=== PATIENT | male | born 1965 | race Caucasian/White ===

== ENCOUNTER → 2016-10-09 | Outpatient (CLI) | payer MEDICARE ==
[2016-10-09 19:14] LABS: Basophils # (A) 0.1 k/uL (0-0.2); Basophils % (A) 1 %; CH 30.7; CHCM 33.9; Eosinophils # (A) 0.3 k/uL (0-0.7); Eosinophils % (A) 4 %; HDW 2.42; HGB 15.1 gm/dL (13.0-17.5); Luc # (Auto) 0.23; Luc % (Auto) 3; Lymphocytes # (A) 1.7 k/uL (1.0-4.8); Lymphocytes % (A) 22 %; MCH 30.6 pg (25.0-35.0); MCHC 33.7 g/dL (31.0-37.0); MCV 90.8 fL (80.0-100.0); Mean Platelet Volume 9.9; Monocytes # (A) 0.5 k/uL (0-1.0); Monocytes % (A) 7 %; Neutrophils % (A) 64 %; RBC 4.95 m/uL (4.30-5.90); RDW 13.3 % (11.5-15.5); WBC 7.8 k/uL (3.8-10.6); WBC (Perox) 7.55
[2016-10-09 19:23] LABS: ALT 29 U/L (21-72); AST 24 U/L (17-59); Alkaline Phosphatase 81 U/L (38-126); Anion Gap 11 mmol/L; Blood Urea Nitrogen 11 mg/dL (9-20); Calcium 9.1 mg/dL (8.4-10.2); Carbon Dioxide 27 mmol/L (22-30); Chloride 103 mmol/L (98-107); Cholesterol 202 mg/dL (<200); Glucose 123 mg/dL (74-99); HDL Cholesterol 38 mg/dL (40-60); Non-African American GFR(MDRD) >60 (>60 ml/min/1.73 sqM); Potassium 3.8 mmol/L (3.5-5.1); Sodium 141 mmol/L (137-145); Total Bilirubin 0.8 mg/dL (0.2-1.3); Total Protein 8.2 g/dL (6.3-8.2); Triglycerides 149 mg/dL (<150)
== END ==
LOC: MMGSC 10:21
PROVIDERS: ATTEND Family Medicine
DX: Z00.00 Encounter for general adult medical examination without abnormal findings (principal); Z12.5 Encounter for screening for malignant neoplasm of prostate
CPT/HCPCS: 84439; 80061; 80053; 84443; 85025; 36415; G0103; 99203

== ENCOUNTER → 2016-10-15 | Outpatient (CLI) | payer MEDICARE | LOC: MMGSC 10:45 | PROVIDERS: ATTEND Family Medicine | DX: R73.01 Impaired fasting glucose (principal) | CPT/HCPCS: 36415; 83036 ==

== ENCOUNTER → 2018-01-06 | Outpatient (CLI) | payer MEDICARE, OTHER | END | disposition home or self-care (01) | LOC: LABPAT 10:11 | PROVIDERS: ATTEND Surgery Plastic and Reconstructive Surgery | DX: Z01.810 Encounter for preprocedural cardiovascular examination (principal) | CPT/HCPCS: 93005 ==

== ENCOUNTER → 2018-01-16 | Outpatient (CLI) | payer MEDICARE, OTHER | END | disposition home or self-care (01) | LOC: LABWHC1 14:00 | PROVIDERS: ATTEND Anesthesiology | DX: K43.6 Other and unspecified ventral hernia with obstruction, without gangrene (principal) | CPT/HCPCS: 86850; 86900; 86901 ==

== ENCOUNTER 2018-01-23 06:44 | Day surgery (SDC) | payer MEDICARE, OTHER ==
[2018-01-16 09:44] VITALS: BMI 28.6
--- NOTE | 2018-01-23 06:22 | P.GSHP ---
History of Present Illness H&P Date: 01/23/18 CHIEF COMPLAINT: Ventral hernia HISTORY OF PRESENT ILLNESS: The patient is a 52-year-old male who presents with a history of swelling and pain along the abdomen from a hernia. Now he presents for surgical intervention. PAST MEDICAL HISTORY: Please see list. PAST SURGICAL HISTORY: Please see list. MEDICATIONS: Please see list. ALLERGIES: Please see list. SOCIAL HISTORY: No illicit drug use FAMILY HISTORY: No reports of Crohn disease or ulcerative colitis. REVIEW OF ORGAN SYSTEMS: CONSTITUTIONAL: No reports of fevers or chills. No reports of weight loss despite prior attempts. GI: Denies any blood in stools or constipation. PHYSICAL EXAM: VITAL SIGNS: Stable GENERAL: Well-developed pleasant in no acute distress. HEENT: No scleral icterus. Extraocular movements grossly intact. Moist buccal mucosa. NECK: Supple without lymphadenopathy. CHEST: Unlabored respirations. Equal bilateral excursions. CARDIOVASCULAR: Regular rate and rhythm. Distal 2+ pulses. ABDOMEN: Soft, nondistended. Palpable defect of the abdomen. No peritoneal signs. MUSCULOSKELETAL: No clubbing, cyanosis, or edema. ASSESSMENT: 1. Ventral hernia PLAN: 1. Recommend proceeding with a robotic ventral hernia repair with mesh. 2. Benefits and risks of surgical intervention was discussed including possibility of open technique. 3. DVT prophylaxis. 4. Antibiotic prophylaxis. Past Medical History Additional Past Medical History / Comment(s): VENTRAL HERNIA History of Any Multi-Drug Resistant Organisms: None Reported Past Surgical History: Hernia Repair Additional Past Surgical History / Comment(s): HERNIA SX CHILD Past Anesthesia/Blood Transfusion Reactions: No Reported Reaction Smoking Status: Never smoker - Past Family History Mother Family Medical History: No Reported History Medications and Allergies Home Medications Medication Instructions Recorded Confirmed Type Ibuprofen [Motrin] 600 mg PO Q8HR PRN 01/16/18 01/16/18 History Allergies Allergy/AdvReac Type Severity Reaction Status Date / Time Penicillins Allergy Unknown Verified 01/16/18 09:39 Childhood
[~2018-01-23 06:44] MED LIST: DEXAMETHASONE SOD PHOSPHATE 10 MG/ML 1 ML VIAL IV ONE; HEPARIN SODIUM,PORCINE 5,000 UNIT/ML 1 ML VIAL SQ ONE; MIDAZOLAM 2 MG/2 ML VIAL IV PRN; ONDANSETRON 4 MG/2 ML VIAL IVP ONE; SCOPOLAMINE 1.5MG/72HR PATCH TRANSDERM ONE; ceFAZolin IN SWFI 2 GM/20 ML SYRINGE IVP ONE; fentaNYL (PF) 50 MCG/ML 2 ML AMP IV PRN
[2018-01-23] MEDS ORDERED: LIDOCAINE 1% 20 ML VIAL (10MG/ML) FOR IV START INTRADERMA ONE (07:20)
[2018-01-23] MEDS ORDERED: LACTATED RINGERS 1,000 ML IV ONE ×2 (07:25→10:03)
[2018-01-23] MEDS ORDERED: NEOSTIGMINE 1 MG/ML 10 ML VIAL ONE (09:02)
[2018-01-23] MEDS ORDERED: GLYCOPYRROLATE 0.2 MG/ML 2 ML VIAL ONE (09:02)
[2018-01-23] MEDS ORDERED: PROPOFOL 10 MG/ML 20 ML VIAL IV ONE (09:02)
[2018-01-23] MEDS ORDERED: SUCCINYLCHOLINE CHLORIDE 100 MG/5 ML SYR IV ONE (09:02)
[2018-01-23] MEDS ORDERED: MIDAZOLAM 2 MG/2 ML VIAL ONE (09:02)
[2018-01-23] MEDS ORDERED: ROCURONIUM BROMIDE 10 MG/ML 10 ML VIAL IV ONE (09:02)
[2018-01-23] MEDS ORDERED: fentaNYL (PF) 50 MCG/ML 2 ML AMP ONE (09:02)
[2018-01-23] MEDS ORDERED: LIDOCAINE 1% INJ 10MG/ML (20 ML MDV) ONE (09:02)
[2018-01-23] MEDS ORDERED: BUPIVACAIN-EPI 0.5%-1:200,000 30 ML VIAL SQ ONE (09:21)
--- NOTE | 2018-01-23 10:11 | P.PCN ---
Date of Procedure: 01/23/18 Description of Procedure: SURGEON: TOMMY HAYNES MD PREOPERATIVE DIAGNOSES: 1. Initial umbilical hernia POSTOPERATIVE DIAGNOSES: 1. Initial umbilical incarcerated, 2 cm OPERATION: 1. Robotic-assisted da Viky Xi laparoscopic repair of initial incarcerated ventral hernia 2 cm without mesh ANESTHESIA: General with local ESTIMATED BLOOD LOSS: 5 mL. SPECIMENS: None. COMPLICATIONS: None. INDICATIONS: The patient is a 52-year-old male who presents with initial umbilical hernia. Surgical intervention with laparoscopic versus robotic and open techniques were reviewed. Possibility of mesh placement was described. Benefits and risks were thoroughly described. Informed consent was obtained. DESCRIPTION OF PROCEDURE: The patient was brought into the operating room and laid in supine position. After general induction, the abdomen had been prepped and draped in standard sterile fashion. Ioban draping was also placed. Prior to incision, a timeout protocol was confirmed with surgical team regarding the patient's name including procedures to be performed. The robot was primed prior to the procedure. A field block using local anesthetic was placed along hernia site including the proposed port sites. Initial incision was made with an #11 blade along the left upper quadrant. A 0 degree 5 mm laparoscopic trocar entry was performed. Diagnostic laparoscopy demonstrated an incarcerated ventral hernia of the epigastrium. A 8 mm trocar was placed along the left lateral abdominal wall approximately 10 cm lateral to the lower midline. An 8 mm port was placed along the left lower quadrant under direct localization. The 5-mm port was exchanged for an 8 mm robotic port. Placements of the ports were 12 cm from the target anatomy and 8 cm apart. The [employer] robot was previously primed, prepped and draped then docked along the left side of the patient. I then sat at the robot [employer] console where working arms of the robot were scissors, needle courtesy van driver, and graspers placed by the transition assistant. Fascial defect of 2 cm was identified. Attention was brought to the umbilicus where an incarcerated ventral hernia was identified also containing fat. The incarcerated contents was reduced as the peritoneal fat was cleaned from the abdominal wall. Next, hemostasis was checked with cautery. The hernia defect of 2-cm was oversewn using #1 Stratafix with fascial imbrication 3. A final endoscopic imaging was obtained. All instruments and pneumoperitoneum were evacuated from the abdominal cavity. The da Viky Xi robot was undocked from the patient. I re-scrubbed into the case for closure of incisions. The incisions were reapproximated using 4-0 Monocryl in an interrupted subcuticular fashion. Exofin liquid glue was applied to the skin after cleansing the skin with normal saline and dilute hydrogen peroxide. An abdominal binder was placed. At the end of the procedure, needle, sponge, and instrument count had been verified correct by aircraft ordnance technician. The patient was taken to the postanesthesia care unit in stable condition. FINDINGS: 1. Intial incarcerated umbilical hernia epigastrium, 2cm 2. Console time 21 minutes Plan - Discharge Summary New Discharge Prescriptions: No Action Ibuprofen [Motrin] 600 mg PO Q8HR PRN PRN Reason: Pain Discharge Medication List Ibuprofen [Motrin] 600 mg PO Q8HR PRN 01/16/18 [History]
[2018-01-23 10:25] VITALS: TEMP 98
[2018-01-23] MEDS ORDERED: MEPERIDINE 50 MG/ML SYRINGE IVP ONE (10:40)
[2018-01-23 11:37] VITALS: RESP 16
[2018-01-23] MEDS ORDERED: TAMSULOSIN 0.4 MG CAP.ER.24H PO STA (13:36)
[2018-01-23 14:17] VITALS: BP 134/82; PULSE 84
[2018-01-23] MEDS ORDERED: IBUPROFEN 200 MG TAB PO ONE (14:26)
[2018-01-23] MEDS: LACTATED RINGERS 1,000 ML IV SCH ×2 (14:36→16:15)
== END 2018-01-23 16:20 | disposition home or self-care (01) ==
LOC: OR 06:44
PROVIDERS: ATTEND Surgery Plastic and Reconstructive Surgery
DX: K42.0 Umbilical hernia with obstruction, without gangrene (principal); J45.909 Unspecified asthma, uncomplicated; K21.9 Gastro-esophageal reflux disease without esophagitis; Z79.899 Other long term (current) drug therapy; Z88.0 Allergy status to penicillin
CPT/HCPCS: 49653; J2250; J1644; J1100; J2710; J2175; J2405; J2001; J3010; J0330; J2704; J0690; 86850; 86900; 86901

== ENCOUNTER → 2018-02-03 | Outpatient (CLI) | payer MEDICARE, OTHER ==
--- NOTE | 2018-02-03 10:32 | CT ---
EXAMINATION TYPE: CT abdomen pelvis wo con DATE OF EXAM: 02/03/2018 HISTORY: Ventral hernia and kidney stones per order. Surgical follow-up per patient. CT DLP: 835 mGycm. Automated Exposure Control for Dose Reduction was Utilized. TECHNIQUE: CT scan of the abdomen and pelvis is performed without oral or IV contrast. COMPARISON: NONE FINDINGS: Within the limitations of a non-contrast study, the following observations are made. LUNG BASES: Motion artifact degradation is present. Patchy atelectasis and/or Limited infiltrate ling saundra near diaphragm axial image 10 is present LIVER/GB: No significant abnormality is appreciated. PANCREAS: No significant abnormality is seen. SPLEEN: No significant abnormality is seen. ADRENALS: No significant abnormality is seen. KIDNEYS: No renal calculi or hydronephrosis is evident bilaterally. Bladder has unusual shape with pr ominence extending into the right lower abdomen and inferior bilateral neck imaging without significa nt wall thickening or adjacent mass. There is mild surrounding fat stranding present. BOWEL: No significant abnormality is seen. GENITAL ORGANS: Prostate gland is upper limits of normal in size. LYMPH NODES: No greater than 1cm abdominal or pelvic lymph nodes are appreciated. OSSEOUS STRUCTURES: No significant abnormality is seen. OTHER: Just right of the midline of the upper to midabdomen there is small hernia containing fat and tiny mesenteric vessels axial image 42 just above the umbilicus and adjacent ventral wall scar. IMPRESSION: 1. No renal calculi or hydronephrosis bilaterally. 2. Successful repair of umbilical hernia but there is small narrowneck ventral wall hernia just super ior to this right of midline containing fat and tiny mesenteric vessel felt also just above vertical incision or developing scar. 3. Abnormal appearance to bladder is felt to reflect product of chronic bladder dysfunction when disc ussing patient's underlying medical condition with ordering surgeon.
== END ==
LOC: RADCTMAIN 09:53
PROVIDERS: ATTEND Surgery Plastic and Reconstructive Surgery
DX: K43.9 Ventral hernia without obstruction or gangrene (principal); N31.9 Neuromuscular dysfunction of bladder, unspecified; Z88.0 Allergy status to penicillin
CPT/HCPCS: 74176

== ENCOUNTER 2018-02-05 09:43 | Day surgery (SDC) | payer MEDICARE, OTHER ==
[2018-02-04 10:54] VITALS: BMI 28.8
--- NOTE | 2018-02-04 21:14 | P.GSHP ---
History of Present Illness H&P Date: 02/05/18 CHIEF COMPLAINT: Ventral hernia HISTORY OF PRESENT ILLNESS: The patient is a 52-year-old male who had a recent umbilical hernia repair 2-3 weeks ago. He reported pain along the abdominal wall at the epigastrium below the xiphoid unrelated to his recent umbilical hernia repair. CT of the abdomen and pelvis confirmed a separate hernia of the epigastrium unrelated to his recently repaired umbilical hernia. Secondary to his discomfort, patient elected to undergo repair of his separate ventral hernia. PAST MEDICAL HISTORY: Please see list. PAST SURGICAL HISTORY: Please see list. MEDICATIONS: Please see list. ALLERGIES: Please see list. SOCIAL HISTORY: No illicit drug use FAMILY HISTORY: No reports of Crohn disease or ulcerative colitis. REVIEW OF ORGAN SYSTEMS: CONSTITUTIONAL: No reports of fevers or chills. No reports of weight loss despite prior attempts. GI: Denies any blood in stools or constipation. PHYSICAL EXAM: VITAL SIGNS: Stable GENERAL: Well-developed pleasant male in no acute distress. HEENT: No scleral icterus. Extraocular movements grossly intact. Moist buccal mucosa. NECK: Supple without lymphadenopathy. CHEST: Unlabored respirations. Equal bilateral excursions. CARDIOVASCULAR: Regular rate and rhythm. Distal 2+ pulses. ABDOMEN: Soft, nondistended. Palpable defect of the abdomen at the epigastrium. No recurrent umbilical hernia. No peritoneal signs. MUSCULOSKELETAL: No clubbing, cyanosis, or edema. ASSESSMENT: 1. Epigastric ventral hernia. PLAN: 1. Recommend proceeding with a robotic ventral hernia repair with mesh. 2. Benefits and risks of surgical intervention was discussed including possibility of open technique. 3. DVT prophylaxis. 4. Antibiotic prophylaxis. Past Medical History Past Medical History: Asthma, GERD/Reflux Additional Past Medical History / Comment(s): hx seizure as child, hiatal hernia , urinary leakage History of Any Multi-Drug Resistant Organisms: None Reported Past Surgical History: Hernia Repair Additional Past Surgical History / Comment(s): ventral hernia 12/23/17, inguinal hernia as infant, Past Anesthesia/Blood Transfusion Reactions: Previous Problems w/ Anesthesia Additional Past Anesthesia/Blood Transfusion Reaction / Comment(s): "took a while to wake up" Smoking Status: Never smoker - Past Family History Mother Family Medical History: No Reported History Medications and Allergies Home Medications Medication Instructions Recorded Confirmed Type Ibuprofen [Motrin] 600 mg PO Q8HR PRN 01/16/18 02/04/18 History Allergies Allergy/AdvReac Type Severity Reaction Status Date / Time Penicillins Allergy Unknown Verified 02/04/18 10:46 Childhood
[~2018-02-05 09:43] MED LIST changes: -DEXAMETHASONE SOD PHOSPHATE 10 MG/ML 1 ML VIAL IV ONE; -MIDAZOLAM 2 MG/2 ML VIAL IV PRN; -ONDANSETRON 4 MG/2 ML VIAL IVP ONE; -SCOPOLAMINE 1.5MG/72HR PATCH TRANSDERM ONE; -fentaNYL (PF) 50 MCG/ML 2 ML AMP IV PRN
[2018-02-05] MEDS ORDERED: LACTATED RINGERS 1,000 ML IV ONE ×3 (10:15→13:02)
[2018-02-05] MEDS ORDERED: ONDANSETRON 4 MG/2 ML VIAL IVP ONE (10:20)
[2018-02-05] MEDS ORDERED: DEXAMETHASONE SOD PHOSPHATE 10 MG/ML 1 ML VIAL IV ONE (10:20)
[2018-02-05] MEDS ORDERED: LIDOCAINE 1% 20 ML VIAL (10MG/ML) FOR IV START INTRADERMA ONE (10:20)
[2018-02-05] MEDS ORDERED: MIDAZOLAM 2 MG/2 ML VIAL ONE (11:36)
[2018-02-05] MEDS ORDERED: KETOROLAC 30 MG/ML 1 ML VIAL ONE (11:36)
[2018-02-05] MEDS ORDERED: PROPOFOL 10 MG/ML 20 ML VIAL IV ONE (11:36)
[2018-02-05] MEDS ORDERED: NEOSTIGMINE 1 MG/ML 10 ML VIAL ONE (11:36)
[2018-02-05] MEDS ORDERED: ROCURONIUM BROMIDE 10 MG/ML 10 ML VIAL IV ONE (11:36)
[2018-02-05] MEDS ORDERED: SUCCINYLCHOLINE CHLORIDE 100 MG/5 ML SYR IV ONE (11:36)
[2018-02-05] MEDS ORDERED: fentaNYL (PF) 50 MCG/ML 2 ML AMP ONE (11:36)
[2018-02-05] MEDS ORDERED: GLYCOPYRROLATE 0.2 MG/ML 2 ML VIAL ONE (11:36)
[2018-02-05] MEDS ORDERED: BUPIVACAIN-EPI 0.5%-1:200,000 30 ML VIAL SQ ONE (11:57)
--- NOTE | 2018-02-05 13:01 | P.OP ---
Date of Procedure: 02/05/18 Description of Procedure: SURGEON: TOMMY HAYNES MD PREOPERATIVE DIAGNOSES: 1. Initial ventral hernia, epigastrium from abnormal computed tomography scan 2. History of cognitive delay 3. History of separate recent umbilical hernia repair POSTOPERATIVE DIAGNOSES: 1. Initial ventral hernia, incarcerated, 2 cm, epigastrium from abnormal computed tomography scan 2. History of cognitive delay 3. History of separate recent umbilical hernia repair OPERATION: 1. Robotic-assisted da Viky Xi laparoscopic repair of initial incarcerated ventral hernia epigastrium 2 cm without mesh ANESTHESIA: General with local ESTIMATED BLOOD LOSS: 5 mL. SPECIMENS: None. COMPLICATIONS: None. INDICATIONS: The patient is a 52-year-old male who presents with initial ventral hernia of the epigastrium. He had a recent umbilical hernia repair without recurrence. A CT of the abdomen and pelvis was obtained demonstrating a separate new ventral hernia of the epigastrium. Surgical intervention with laparoscopic versus robotic and open techniques were reviewed. Placement of mesh was also reviewed. The patient wishes to avoid mesh. Benefits and risks were thoroughly described. Informed consent was obtained. DESCRIPTION OF PROCEDURE: The patient was brought into the operating room and laid in supine position. After general induction, the abdomen had been prepped and draped in standard sterile fashion. Ioban draping was also placed. Prior to incision, a timeout protocol was confirmed with surgical team regarding the patient's name including procedures to be performed. The robot was primed prior to the procedure. A field block using local anesthetic was placed along hernia site including the proposed port sites. Initial incision was made with an #11 blade along the left upper quadrant. A 0 degree 5 mm laparoscopic trocar entry was performed. Diagnostic laparoscopy demonstrated an incarcerated ventral hernia of the epigastrium. A 8 mm trocar was placed along the left lateral abdominal wall approximately 10 cm lateral to the lower midline. An 8 mm port was placed along the left lower quadrant under direct localization. The 5-mm port was exchanged for an 8 mm robotic port. Placements of the ports were 12 cm from the target anatomy and 8 cm apart. The [employer] robot was previously primed, prepped and draped then docked along the left side of the patient. I then sat at the robot [employer] Viky Xi console where working arms of the robot were scissors, needle ross carrier driver, and graspers placed by the medical record assistant. Adhesions along his previous umbilical repair was addressed using scissors and cautery. An incarcerated falciform of the epigastrium was confirmed. Next, the fascia was cleaned of peritoneal fat to demonstrate defect. Fascial defect of 2 cm was identified including laxity of the abdominal wall. The incarcerated contents was reduced as the peritoneal fat was cleaned from the abdominal wall. Next, hemostasis was checked with cautery. The hernia defect of 2-cm was oversewn using #1 Stratafix with fascial imbrication 3. A final endoscopic imaging was obtained. All instruments and pneumoperitoneum were evacuated from the abdominal cavity. The da Viky Xi robot was undocked from the patient. I re-scrubbed into the case for closure of incisions. The incisions were reapproximated using 4-0 Monocryl in an interrupted subcuticular fashion. Exofin liquid glue was applied to the skin after cleansing the skin with normal saline and dilute hydrogen peroxide. An abdominal binder was placed. At the end of the procedure, needle, sponge, and instrument count had been verified correct by certified ophthalmic surgical assistant. The patient was taken to the postanesthesia care unit in stable condition. FINDINGS: 1. Intial incarcerated ventral hernia epigastrium, 2cm 2. No recurrent hernia of the umbilicus. Plan - Discharge Summary New Discharge Prescriptions: No Action Ibuprofen [Motrin] 600 mg PO Q8HR PRN PRN Reason: Pain Discharge Medication List Ibuprofen [Motrin] 600 mg PO Q8HR PRN 01/16/18 [History]
[2018-02-05] MEDS: MEPERIDINE 50 MG/ML SYRINGE IVP ONE ×2 (13:13→13:20)
[2018-02-05 13:16] VITALS: TEMP 97.6
[2018-02-05] MEDS ORDERED: ROPIVACAINE 5 MG/ML 30 ML VIAL MISCELLANE ONE (13:20)
[2018-02-05] MEDS ORDERED: TAMSULOSIN 0.4 MG CAP.ER.24H PO STA (13:22)
[2018-02-05 14:48] VITALS: BP 148/94
[2018-02-05 15:06] VITALS: RESP 16
[2018-02-05 15:24] VITALS: PULSE 97
== END 2018-02-05 15:50 | disposition home or self-care (01) ==
LOC: OR 09:43
PROVIDERS: ATTEND Surgery Plastic and Reconstructive Surgery
DX: K43.6 Other and unspecified ventral hernia with obstruction, without gangrene (principal); K21.9 Gastro-esophageal reflux disease without esophagitis; J45.909 Unspecified asthma, uncomplicated; Z88.0 Allergy status to penicillin
CPT/HCPCS: 49653; J2250; J1644; J1100; J2710; J2175; J2405; J3010; J1885; J2795; J0330; J2704; J0690